=== PATIENT | male | born 1950 | race Caucasian/White ===

== ENCOUNTER → 2017-02-28 | Outpatient (CLI) | payer OTHER ==
[~2017-02-28] MED LIST: AMITRIPTYLINE H75 MG PO; ASPIRIN EC81 M1 PO; ATORVASTATIN CA40 MG PO; CELEXA20 MG PO; COREG6.25 MG PO; GLUCOPHAGE500 M1 PO; LANTUS SOLOSTAR3 ML; NEURONTIN100 MG PO; QUINAPRIL HCL20 M1 PO; TRESIBA FL200 UNIT/1 SUBQ; ZOFRAN ODT4 MG PO
--- NOTE | ~2017-02-28 | US6 ---
[facility] A Service of [facility] RADIOLOGY TEXT RESULTS PATIENT: LAZ CHU LOCATION: SG : 50 UNIT #: [id number] AGE: [address]: SERA CONNER MD SEX: M ORDER DR: [id number] [place] [id number] O MR#: [id number] Acc #: [id number] NAME: LAZ CHU : 1950 SEX: M STUDY DATE/TIME: 02/28/2017 9:31 UNIT: SGUS ROOM: STUDY DESCRIPTION: US Abdominal Limited Attending Physician: Sarah Conner M.D. Referring Physician: Sarah Conner M.D. Ordering Physician: Sarah Conner M.D. Primary Care Physician: Sarah Conner M.D. MEDICAL IMAGING REPORT This report is preliminary unless electronic signature is present. REVISED REPORT EXAM Left upper quadrant ultrasound 02/28/2017 HISTORY Left upper quadrant abdominal pain for 2 weeks. No known injury. FINDINGS The spleen measures 11.6 cm in greatest diameter. The spleen is homogeneous in echotexture and demonstrates no cystic or solid mass lesions. Normal blood flow is seen throughout the spleen. The left kidney measured 12 cm in longitudinal dimensions. There is no evidence of hydronephrosis or nephrolithiasis. There is normal left renal cortical echogenicity. Cortical thickness was 2.1 cm. IMPRESSION Negative left upper quadrant ultrasound. Dictated by... Petros Shields M.D. THIS IS AN ELECTRONICALLY VERIFIED REPORT Petros Shields M.D. at 03/18/2017 2:18 PM CARINA/iliana TD: 02/28/2017 13:15 JOB #: [id number] MEDICAL IMAGING REPORT [facility] A Service of [facility] RADIOLOGY TEXT RESULTS PATIENT: CHU,ROSCOE H LOCATION: [facility] #: [id number] : [birth year] UNIT #: [id number] AGE: [address]: SERA CONNER MD SEX: M ORDER DR: Page 1 of 1
== END | disposition home or self-care (01) ==
LOC: SGUS 09:29
DX: R10.12 Left upper quadrant pain (principal)
CPT/HCPCS: 76705

== ENCOUNTER → 2017-03-07 | Outpatient (CLI) | payer OTHER ==
--- NOTE | ~2017-03-07 | CT7 ---
[facility] A Service of [facility] RADIOLOGY TEXT RESULTS PATIENT: LAZ CHU LOCATION: [facility] : [birth year] UNIT #: [id number] AGE: [address]: SERA CONNER MD SEX: M ORDER DR: [id number] [address] [address] [id number] O MR#: [id number] Acc #: [id number] NAME: LAZ CHU. : 1950 SEX: M STUDY DATE/TIME: 03/07/2017 11:34 UNIT: [facility] ROOM: STUDY DESCRIPTION: CT Abdomen Wo Cont Attending Physician: Sarah Conner M.D. Referring Physician: Sarah Conner M.D. Ordering Physician: Sarah Conner M.D. Primary Care Physician: Sarah Conner M.D. MEDICAL IMAGING REPORT This report is preliminary unless electronic signature is present. EXAM CT abdomen without contrast. HISTORY Left upper abdomen pain, pain x2 weeks, upper left side abdomen. TECHNIQUE CT of the abdomen performed with administration of enteric, but not intravascular, contrast. This CT exam was performed with one or more of the following radiation dose reduction techniques: automatic exposure control, adjustment of mA and/or kV according to patient size, and iterative reconstruction. Study limited in the absence of intravascular contrast. COMPARISON No prior CTs for comparison. FINDINGS Calcified granulomata in the bilateral lung bases. Centrilobular emphysema at the lung bases. Inferior heart and pericardium notable for coronary arterial calcifications. The liver, gallbladder, spleen, pancreas, adrenal glands are unremarkable. The left kidney shows a mid to upper pole 1.2 cm cyst. Left kidney otherwise unremarkable. The right kidney contains nonobstructing calculi, the largest measuring 6 mm in the lower pole. No right-sided hydronephrosis or hydroureter. No ureteral calculi are seen. Imaging not extended through the entire pelvis. No upper pelvic adenopathy. No retroperitoneal adenopathy. There are some densely calcified retroperitoneal nodes with no soft tissue component likely reflecting prior exposure to granulomatous disease. The distal esophagus, stomach, small bowel unremarkable in visualized extent. The appendix is normal. Colon shows no acute abnormality. There are a few uncomplicated diverticula. Extensive atherosclerotic arterial calcifications. No abdominal aortic aneurysm. The bony structures show [facility] A Service of [facility] RADIOLOGY TEXT RESULTS PATIENT: LAZ CHU LOCATION: [facility] : 50 UNIT #: [id number] AGE: [address]: SERA CONNER MD SEX: M ORDER DR: spinal degenerative changes. No acute abnormality. IMPRESSION 1. There is no clearly acute abnormality in the abdomen. 2. Gallbladder, pancreas and appendix unremarkable. 3. Nonobstructing right renal calculi, largest measuring 6 mm in the lower pole. 1.2 cm left renal cyst. Kidneys otherwise unremarkable with no indication of acute abnormality. 4. Extensive atherosclerotic arterial calcification in the coronary and systemic circulation. No aortic aneurysm. 5. Spinal degenerative changes. No acute-appearing bony abnormality. See remainder of associated findings in body report above. Dictated by... Conrad Kwan M.D. THIS IS AN ELECTRONICALLY VERIFIED REPORT Conrad Kwan M.D. at 03/10/2017 5:45 PM GONZALEZ/sona TD: 03/08/2017 10:35 JOB #: [id number] MEDICAL IMAGING REPORT Page 1 of 1
[2017-03-07 11:06] LABS: POC - CREATININE 1.58 mg/dL (0.64-1.27)
== END | disposition home or self-care (01) ==
LOC: SCT 10:56
PROVIDERS: Family Medicine
DX: R10.12 Left upper quadrant pain (principal); N20.0 Calculus of kidney; N28.1 Cyst of kidney, acquired; I25.10 Atherosclerotic heart disease of native coronary artery without angina pectoris; M47.899 Other spondylosis, site unspecified
CPT/HCPCS: 74150; 82565

== ENCOUNTER → 2017-03-25 | Outpatient (CLI) | payer OTHER ==
--- NOTE | ~2017-03-25 | EKG ---
PATIENT: LAZ CHU UNIT #: [id number] Ventricular Rate: 60 BPM Atrial Rate: 60 BPM P-R Interval: 134 ms QRS Duration: 102 ms Q-T Interval: 392 ms QTC Calculation(Bezet): 392 ms P [place]: 46 degrees Calculated R [place]: 20 degrees Calculated T [place]: 71 degrees Diagnosis Line: Normal sinus rhythm Diagnosis Line: T wave abnormality, consider anterolateral Diagnosis Line: ischemia Diagnosis Line: Abnormal ECG Diagnosis Line: No previous ECGs available Diagnosis Line: Confirmed by HATTIE CHRISTOPHER MD ([id number]) on 03/27/2017 Diagnosis Line: 7:01:55 PM INTERPRETING MD: CANDI OLIVEIRA
[2017-03-25 10:37] LABS: BUN/CREATININE RATIO 16.66; CALCIUM SERUM 8.4 mg/dL (8.4-10.2); CREATININE SERUM 0.9 mg/dL (0.6-1.4); GLOM FILT RATE Estimated 88.7 mL/min (>60); POTASSIUM 3.5 mmol/L (3.5-5.1)
== END | disposition home or self-care (01) ==
LOC: SLAB 09:31
PROVIDERS: Ophthalmology
DX: Z01.818 Encounter for other preprocedural examination (principal); I10 Essential (primary) hypertension; R94.31 Abnormal electrocardiogram [ECG] [EKG]
CPT/HCPCS: 36415; 80048; 93005